=== PATIENT | female | born 1945 | race Caucasian/White ===

== ENCOUNTER 2019-12-30 09:42 | Emergency (ER) | payer MEDICARE, OTHER ==
[~2019-12-30] VITALS: Ht 165.1 cm; Wt 70.0 kg
[2019-12-30 09:42] VITALS: BP 138/102
--- NOTE | 2019-12-30 10:16 | PHYS DOC ---
General Adult EDM: Chief Complaint: OTHER COMPLAINTS HPI: HPI: This patient was not seen by me in the emergency department. 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 Risk Scores: Score 0 - 3: 2.5% MACE over next 6 weeks - Discharge Home Score 4 - 6: 20.3% MACE over next 6 weeks - Admit for Clinical Observation Score 7 - 10: 72.7% MACE over next 6 weeks - Early Invasive Strategies Allergies: Allergies: Allergies Coded Allergies Type Severity Reaction Last Updated Verified Sulfa (Sulfonamide Antibiotics) Allergy Intermediate unknown 12/24/19 Yes Physical Exam: PE: Patient was not seen by emergency department physician EKG: EKG: [] Radiology/Procedures: Radiology/Procedures: [] Course & Med Decision Making: Course & Med Decision Making Pertinent Labs and Imaging studies reviewed. (See chart for details) [] Dragon Disclaimer: Dragon Disclaimer: This electronic medical record was generated, in whole or in part, using a voice recognition dictation system. Departure Departure Disposition: HOME, SELF-CARE Condition: STABLE Referrals: SOHAIL RENEE MD (PCP) Scripts No Active Prescriptions or Reported Meds KATE RAMIREZ DO December 30, 2019 10:16
--- NOTE | 2019-12-31 21:53 | CONS ---
DATE OF CONSULTATION: HISTORY OF PRESENT ILLNESS: This patient is a 74-year-old white female who is coming from [facility] to the Emergency Room at [facility] for consultation for postmenopausal bleeding. She is a patient of Dr. Eddie Barnhart, seen in consults mainly for vaginal bleeding. Could not get much of the history from the patient as she is having difficulty to breathe and she has congestive heart failure, ascites, and other medical problems. PHYSICAL EXAMINATION: PELVIC: Digital exam was done as the speculum exam was very difficult to do. There is urethral growth seen just below the catheter, the urethral opening and is quite swollen. On bimanual exam, there is a small amount of bleeding seen and also slight irregularity in the urethral area. Cervical os is closed and uterus feels normal size. No adnexal masses are palpable at this time. No clots in the vaginal area. IMPRESSION: Urethral growth, possible urethral caruncle or a growth from the urethra extending onto the vaginal as well as the cervical area, rule out any cancer of the urethra or bladder, postmenopausal bleeding. RECOMMENDATION: The patient does need a consult from urologist to rule out any cancer of the bladder. Would recommend Depo-Provera injection 150 mg IM at this time in order to reduce the vaginal bleeding. Thank you for giving me the opportunity to participate in the care and management of this patient. RONALDO BARRERA MD DR: CASTILLO/marlys JOB#: [id number] / [id number]
== END 2019-12-30 10:26 | disposition home or self-care (01) ==
LOC: ER 09:42
DX: N95.0 Postmenopausal bleeding (principal)
CPT/HCPCS: 88175; 99281; 99283; 99284